=== PATIENT | female | born 1960 | race Caucasian/White ===

== ENCOUNTER 2017-12-09 14:20 | Emergency (ER) | payer OTHER ==
[~2017-12-09] VITALS: Ht 157.5 cm; Wt 43.1 kg
[2017-12-09] MEDS ORDERED: ULTRA-LIGHT RO1 EACH MC (14:56)
[2017-12-09] MEDS ORDERED: ALBU90OI INH (14:58)
[2017-12-09] MEDS ORDERED: Zantac150 MG PO (14:59)
[2017-12-09] MEDS ORDERED: HYDHCL25 PO (15:00)
== END 2017-12-09 15:06 | disposition home or self-care (01) ==
LOC: ER 14:20
DX: M25.562 Pain in left knee (principal); G89.29 Other chronic pain; Z88.0 Allergy status to penicillin; Z88.8 Allergy status to other drugs, medicaments and biological substances; F17.200 Nicotine dependence, unspecified, uncomplicated; Z79.899 Other long term (current) drug therapy
CPT/HCPCS: 99282